=== PATIENT | male | born 1930 | race Caucasian/White ===

== ENCOUNTER 2019-09-18 14:10 | Inpatient (IN) ==
[2019-09-18 16:00] LABS: Basophils % 0.4 % (0.0-0.8); Eosinophils # 0.1 10*3/uL (0.0-0.87); Eosinophils % 1.4 % (0.00-10.9); Hematocrit 46.5 VOL% (42.0-52.0); Hemoglobin 15.7 GM/DL (14.0-18.0); Immature Granulocytes % 0.4 %; Immature Granulocytes Absolute 0.03 #; Lymphocytes # 3.3 10*3/uL (1.4-4.0); Lymphocytes % 46.1 % (21.2-54.2); Mean Corpuscular HGB Conc 33.8 GM/DL (32-36); Mean Corpuscular Volume 91.9 FL (87-102); Mean Platelet Volume 9.5 FL (9.6-12.0); Monocytes % 8.8 % (1.7-12.7); Neutrophils % 42.9 % (38.7-73.9); Platelet Count 269 T/CUMM (130-400); Red Blood Count 5.06 MC/CUMM (3.8-5.5); Red Cell Distribution Width 12.7 % (9.3-17.3); White Blood Count 7.2 T/CUMM (4-12)
[2019-09-18 16:10] LABS: Apearance,Urine CLEAR (Clear); Bacteria,Urine Occasional /HPF (Few); Bilirubin,Urine Negative (Negative); Blood, Urine Negative (Negative); Calcium Oxalate Crystals,Urine Moderate /HPF (Few); Glucose,Urine (UA) Negative (Negative); Ketones,Urine 5 mg/dL (Negative); Mucus,Urine Moderate /LPF (Occasional); Nitrite,Urine Negative (Negative); Protein,Urine Negative; RBC,Urine 2 /HPF (0-4); Squamous Epithelial Cell,Urine Occasional /HPF (0-10); Urine Color Yellow (Yellow); WBC,Urine 6 /HPF (0-6)
[2019-09-18 16:22] LABS: Bilirubin,Total 0.5 MG/DL (0.2-1.0); Calcium 9.7 MG/DL (8.5-10.1); Osmolality,Calculated 274.8 MOS/KG (273-304); Total Protein 7.4 G/DL (6.4-8.3)
[2019-09-18] MEDS ORDERED: ONDANSETRON 4 MG/2 ML VIAL IV PRN (18:26)
[2019-09-18] MEDS ORDERED: ACETAMINOPHEN 325 MG TABLET PO PRN (18:26)
[2019-09-18] MEDS ORDERED: cefTRIAXone 1,000 MG in SYRINGE 1 EACH IV SCH (20:00)
[2019-09-18] MEDS: SODIUM CHLORIDE 0.9% 1,000 ML IV SCH (20:38)
[2019-09-18] MEDS: ENOXAPARIN 30 MG/0.3 ML SYRINGE SUBCUT SCH (20:39)
[2019-09-18 21:18] LABS: Folate 10.6 NG/ML (5.4-24.0); Vitamin B12 330 PG/ML (211-911)
[2019-09-19 05:48] LABS: Basophils % 0.4 % (0.0-0.8); Eosinophils # 0.2 10*3/uL (0.0-0.87); Eosinophils % 3.1 % (0.00-10.9); Hematocrit 40.9 VOL% (42.0-52.0); Immature Granulocytes % 0.2 %; Immature Granulocytes Absolute 0.01 #; Lymphocytes # 2.8 10*3/uL (1.4-4.0); Mean Corpuscular HGB Conc 34.2 GM/DL (32-36); Mean Corpuscular Volume 92.3 FL (87-102); Mean Platelet Volume 9.8 FL (9.6-12.0); Monocytes % 9.9 % (1.7-12.7); Neutrophils % 34.4 % (38.7-73.9); Platelet Count 221 T/CUMM (130-400); Red Blood Count 4.43 MC/CUMM (3.8-5.5); Red Cell Distribution Width 12.6 % (9.3-17.3); White Blood Count 5.5 T/CUMM (4-12)
[2019-09-19 06:11] LABS: Calcium 8.9 MG/DL (8.5-10.1); Osmolality,Calculated 277.4 MOS/KG (273-304)
[2019-09-19 06:42] LABS: Lymphocytes 54 % (20-55); Platelet Estimate Adequate; Segmented Neutrophils 37 % (50-85); Total Cells Counted 100
[2019-09-19 06:43] LABS: Atypical Lymphocytes Few
[2019-09-19 07:47] LABS: RPR Confirm - Less than 1 yr REACTIVE (Nonreactive)
[2019-09-19] MEDS: cefTRIAXone 2,000 MG in SYRINGE 1 EACH IV SCH (11:33)
[2019-09-19] MEDS ORDERED: TUBERCULIN SKIN TEST 0.1 ML SYRINGE INTRADERM ONE (12:12)
[2019-09-19 13:07] LABS: Free T4 (Free Thyroxine) 0.7 NG/DL (0.76-1.46)
[2019-09-19 13:27] LABS: HIV Antigen/Antibody Result Nonreactive (Nonreactive)
[2019-09-19] MEDS: DOCUSATE SODIUM 100 MG/10 ML UDCUP PO SCH ×2 (13:50→20:44)
[2019-09-19 13:56] LABS: Troponin I 0.018 NG/ML (0.00-0.045)
[2019-09-19 14:53] LABS: PT Patient Result 10.7 SECS (9.6-12.2)
[2019-09-19] MEDS: SODIUM CHLORIDE 0.9% 1,000 ML IV SCH (16:03)
[2019-09-19 17:57] LABS: Lymphocytes,CSF 100 %
[2019-09-19 17:58] LABS: Appearance,CSF Hazy; Red Blood Cell,CSF 3411 C/CUMM; White Blood Cell,CSF 2 C/CUMM
[2019-09-19] MEDS: ENOXAPARIN 30 MG/0.3 ML SYRINGE SUBCUT SCH (20:44)
[2019-09-20] MEDS: SODIUM CHLORIDE 0.9% 1,000 ML IV SCH ×3 (05:47→18:14)
[2019-09-20] MEDS: LEVOTHYROXINE 50 MCG TABLET PO SCH (06:16)
[2019-09-20 07:30] LABS: Risk Ratio 3.1; VLDL CHOLESTEROL 14.4 MG/DL
[2019-09-20] MEDS: DOCUSATE SODIUM 100 MG/10 ML UDCUP PO SCH ×2 (08:38→21:14)
[2019-09-20] MEDS: cefTRIAXone 2,000 MG in SYRINGE 1 EACH IV SCH (11:47)
[2019-09-20] MEDS: ACYCLOVIR INJ 500 MG in SODIUM CHLORIDE 0.9% 100 ML IV SCH ×2 (15:11→23:22)
[2019-09-20] MEDS: PENICILLIN G POTASSIUM INJ 4,000,000 UNIT in SODIUM CHLORIDE 0.9% 100 ML IV SCH ×2 (18:16→21:14)
[2019-09-20] MEDS: ENOXAPARIN 30 MG/0.3 ML SYRINGE SUBCUT SCH (21:15)
[2019-09-21] MEDS: PENICILLIN G POTASSIUM INJ 4,000,000 UNIT in SODIUM CHLORIDE 0.9% 100 ML IV SCH ×6 (00:47→21:07)
[2019-09-21] MEDS: SODIUM CHLORIDE 0.9% 1,000 ML IV SCH ×2 (05:09→06:05)
[2019-09-21] MEDS: LEVOTHYROXINE 50 MCG TABLET PO SCH (05:46)
[2019-09-21] MEDS: ACYCLOVIR INJ 500 MG in SODIUM CHLORIDE 0.9% 100 ML IV SCH ×3 (06:05→23:35)
[2019-09-21 07:22] LABS: Calcium 8.7 MG/DL (8.5-10.1); Osmolality,Calculated 276.4 MOS/KG (273-304)
[2019-09-21] MEDS: DOCUSATE SODIUM 100 MG/10 ML UDCUP PO SCH ×2 (08:46→21:08)
[2019-09-21] MEDS: ENOXAPARIN 40 MG/0.4 ML SYRINGE SUBCUT SCH (21:08)
[2019-09-22] MEDS: PENICILLIN G POTASSIUM INJ 4,000,000 UNIT in SODIUM CHLORIDE 0.9% 100 ML IV SCH ×6 (00:55→21:28)
[2019-09-22] MEDS: SODIUM CHLORIDE 0.9% 1,000 ML IV SCH ×3 (06:46→23:25)
[2019-09-22] MEDS: ACYCLOVIR INJ 500 MG in SODIUM CHLORIDE 0.9% 100 ML IV SCH ×3 (07:41→23:26)
[2019-09-22] MEDS: LEVOTHYROXINE 50 MCG TABLET PO SCH (07:41)
[2019-09-22] MEDS: DOCUSATE SODIUM 100 MG/10 ML UDCUP PO SCH ×2 (09:04→21:27)
[2019-09-22] MEDS: ENOXAPARIN 40 MG/0.4 ML SYRINGE SUBCUT SCH (21:27)
[2019-09-23] MEDS: PENICILLIN G POTASSIUM INJ 4,000,000 UNIT in SODIUM CHLORIDE 0.9% 100 ML IV SCH ×6 (01:20→20:50)
[2019-09-23 04:52] LABS: Basophils % 0.4 % (0.0-0.8); Eosinophils # 0.1 10*3/uL (0.0-0.87); Eosinophils % 2.8 % (0.00-10.9); Hematocrit 39.7 VOL% (42.0-52.0); Hemoglobin 13.5 GM/DL (14.0-18.0); Immature Granulocytes % 0.2 %; Immature Granulocytes Absolute 0.01 #; Lymphocytes # 2.3 10*3/uL (1.4-4.0); Lymphocytes % 46.7 % (21.2-54.2); Mean Corpuscular Volume 91.3 FL (87-102); Mean Platelet Volume 9.8 FL (9.6-12.0); Monocytes % 9.8 % (1.7-12.7); Neutrophils % 40.1 % (38.7-73.9); Platelet Count 239 T/CUMM (130-400); Red Blood Count 4.35 MC/CUMM (3.8-5.5); Red Cell Distribution Width 12.8 % (9.3-17.3)
[2019-09-23 05:12] LABS: Albumin 2.8 G/DL (3.4-5.0); Bilirubin,Total 0.9 MG/DL (0.2-1.0); Calcium 8.8 MG/DL (8.5-10.1); Osmolality,Calculated 274.5 MOS/KG (273-304); Total Protein 5.8 G/DL (6.4-8.3)
[2019-09-23] MEDS: LEVOTHYROXINE 50 MCG TABLET PO SCH (06:21)
[2019-09-23] MEDS: ACYCLOVIR INJ 500 MG in SODIUM CHLORIDE 0.9% 100 ML IV SCH ×3 (06:22→23:34)
[2019-09-23] MEDS: DOCUSATE SODIUM 100 MG/10 ML UDCUP PO SCH ×2 (08:56→20:50)
[2019-09-23] MEDS: ENOXAPARIN 40 MG/0.4 ML SYRINGE SUBCUT SCH (20:50)
[2019-09-23] MEDS: SODIUM CHLORIDE 0.9% 1,000 ML IV SCH (23:33)
[2019-09-24] MEDS: PENICILLIN G POTASSIUM INJ 4,000,000 UNIT in SODIUM CHLORIDE 0.9% 100 ML IV SCH ×6 (00:43→20:35)
[2019-09-24] MEDS: ACYCLOVIR INJ 500 MG in SODIUM CHLORIDE 0.9% 100 ML IV SCH ×3 (06:02→22:35)
[2019-09-24] MEDS: LEVOTHYROXINE 50 MCG TABLET PO SCH (06:02)
[2019-09-24] MEDS: DOCUSATE SODIUM 100 MG/10 ML UDCUP PO SCH ×2 (08:06→20:35)
[2019-09-24] MEDS: SODIUM CHLORIDE 0.9% 1,000 ML IV SCH ×2 (12:49→20:34)
[2019-09-24] MEDS: DONEPEZIL 5 MG TABLET PO SCH (20:35)
[2019-09-25] MEDS: PENICILLIN G POTASSIUM INJ 4,000,000 UNIT in SODIUM CHLORIDE 0.9% 100 ML IV SCH ×6 (00:11→20:49)
[2019-09-25] MEDS: SODIUM CHLORIDE 0.9% 1,000 ML IV SCH ×2 (05:53→17:30)
[2019-09-25] MEDS: LEVOTHYROXINE 50 MCG TABLET PO SCH (05:56)
[2019-09-25] MEDS: ACYCLOVIR INJ 500 MG in SODIUM CHLORIDE 0.9% 100 ML IV SCH ×3 (06:00→23:35)
[2019-09-25] MEDS: DOCUSATE SODIUM 100 MG/10 ML UDCUP PO SCH ×2 (08:28→20:50)
[2019-09-25] MEDS: DONEPEZIL 5 MG TABLET PO SCH (20:48)
[2019-09-26] MEDS: PENICILLIN G POTASSIUM INJ 4,000,000 UNIT in SODIUM CHLORIDE 0.9% 100 ML IV SCH ×6 (01:09→20:19)
[2019-09-26] MEDS: LEVOTHYROXINE 50 MCG TABLET PO SCH (05:48)
[2019-09-26] MEDS: ACYCLOVIR INJ 500 MG in SODIUM CHLORIDE 0.9% 100 ML IV SCH ×3 (08:53→23:12)
[2019-09-26 09:21] LABS: Basophils % 0.6 % (0.0-0.8); Eosinophils # 0.2 10*3/uL (0.0-0.87); Eosinophils % 3.2 % (0.00-10.9); Hematocrit 42.7 VOL% (42.0-52.0); Hemoglobin 14.1 GM/DL (14.0-18.0); Immature Granulocytes % 0.4 %; Immature Granulocytes Absolute 0.02 #; Mean Corpuscular Volume 93.6 FL (87-102); Mean Platelet Volume 9.7 FL (9.6-12.0); Monocytes % 10.4 % (1.7-12.7); Neutrophils % 45.4 % (38.7-73.9); Platelet Count 261 T/CUMM (130-400); Red Blood Count 4.56 MC/CUMM (3.8-5.5); Red Cell Distribution Width 13.1 % (9.3-17.3)
[2019-09-26 09:32] LABS: Albumin 3.2 G/DL (3.4-5.0); Bilirubin,Total 0.5 MG/DL (0.2-1.0); Calcium 9.1 MG/DL (8.5-10.1); Osmolality,Calculated 277.3 MOS/KG (273-304)
[2019-09-26] MEDS: DOCUSATE SODIUM 100 MG/10 ML UDCUP PO SCH ×2 (10:38→21:24)
[2019-09-26 15:37] LABS: Glucose,CSF 71 MG/DL (40-70)
[2019-09-26 16:00] LABS: Appearance,CSF Clear; Red Blood Cell,CSF 9 C/CUMM; White Blood Cell,CSF 2 C/CUMM
[2019-09-26 17:35] LABS: Lymphocytes,CSF 100 %
[2019-09-26] MEDS: DONEPEZIL 5 MG TABLET PO SCH (20:19)
[2019-09-27] MEDS: PENICILLIN G POTASSIUM INJ 4,000,000 UNIT in SODIUM CHLORIDE 0.9% 100 ML IV SCH ×6 (01:52→20:42)
[2019-09-27] MEDS: LEVOTHYROXINE 50 MCG TABLET PO SCH (06:38)
[2019-09-27] MEDS: DOCUSATE SODIUM 100 MG/10 ML UDCUP PO SCH ×2 (08:14→20:41)
[2019-09-27] MEDS: ACYCLOVIR INJ 500 MG in SODIUM CHLORIDE 0.9% 100 ML IV SCH (08:15)
[2019-09-27] MEDS: ACYCLOVIR 200 MG CAPSULE PO SCH ×2 (14:45→20:41)
[2019-09-27] MEDS: DONEPEZIL 5 MG TABLET PO SCH (20:41)
[2019-09-28] MEDS: PENICILLIN G POTASSIUM INJ 4,000,000 UNIT in SODIUM CHLORIDE 0.9% 100 ML IV SCH ×6 (00:53→20:45)
[2019-09-28] MEDS: LEVOTHYROXINE 50 MCG TABLET PO SCH (05:58)
[2019-09-28] MEDS: ACYCLOVIR 200 MG CAPSULE PO SCH ×3 (08:51→20:45)
[2019-09-28] MEDS: DOCUSATE SODIUM 100 MG/10 ML UDCUP PO SCH ×2 (08:52→20:45)
[2019-09-28 13:11] LABS: VDRL Spinal Fluid Negative (Negative)
[2019-09-28] MEDS: DONEPEZIL 5 MG TABLET PO SCH (20:45)
[2019-09-29] MEDS: PENICILLIN G POTASSIUM INJ 4,000,000 UNIT in SODIUM CHLORIDE 0.9% 100 ML IV SCH ×6 (00:54→20:22)
[2019-09-29] MEDS: LEVOTHYROXINE 50 MCG TABLET PO SCH (05:39)
[2019-09-29] MEDS: DOCUSATE SODIUM 100 MG/10 ML UDCUP PO SCH ×2 (08:44→20:22)
[2019-09-29] MEDS: ACYCLOVIR 200 MG CAPSULE PO SCH ×3 (08:44→20:22)
[2019-09-29] MEDS: DONEPEZIL 5 MG TABLET PO SCH (20:22)
[2019-09-30] MEDS: PENICILLIN G POTASSIUM INJ 4,000,000 UNIT in SODIUM CHLORIDE 0.9% 100 ML IV SCH ×4 (01:17→12:10)
[2019-09-30] MEDS: LEVOTHYROXINE 50 MCG TABLET PO SCH (05:41)
[2019-09-30] MEDS: ACYCLOVIR 200 MG CAPSULE PO SCH (09:12)
[2019-09-30] MEDS: DOCUSATE SODIUM 100 MG/10 ML UDCUP PO SCH (09:13)
[2019-09-30 12:42] VITALS: BP 140/80
[2019-09-30 13:21] LABS: West Nile Virus Ab, IgG, CSF Negative (Negative); West Nile Virus Ab, IgM, CSF Negative (Negative)
== END 2019-09-30 15:30 | disposition home health service (06) | DRG 57 ==
LOC: N.ED 14:10 → N.EDINP 14:10 → SUATTDRO 18:44 → N.5E 18:52
PROVIDERS: ADMIT Internal Medicine; ATTEND Internal Medicine Cardiovascular Disease